=== PATIENT | female | born 2000 | race African-American/Black ===

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

== ENCOUNTER 2023-07-17 13:07 | Observation (INO) | payer OTHER ==
[~2023-07-17] VITALS: Ht 170.2 cm; Wt 104.0 kg
[2023-07-17 13:48] VITALS: BP 129/74; PULSE 100; RESP 20; O2SAT 97
== END 2023-07-17 15:42 | disposition home or self-care (01) ==
LOC: ER 13:07 → UNDOADMOB 14:05 → LDRP 14:05 → UNDODISOB 15:42
PROVIDERS: ADMIT Obstetrics & Gynecology; ATTEND Obstetrics & Gynecology
DX: O36.8130 Decreased fetal movements, third trimester, not applicable or unspecified (principal); O62.9 Abnormality of forces of labor, unspecified; O99.333 Smoking (tobacco) complicating pregnancy, third trimester; F17.200 Nicotine dependence, unspecified, uncomplicated; Z3A.37 37 weeks gestation of pregnancy
CPT/HCPCS: 59025; 76818; 81002; 94760; 99284; G0378

== ENCOUNTER 2023-07-30 15:44 | Inpatient (IN) | payer OTHER ==
[~2023-07-30] VITALS: Ht 170.2 cm; Wt 72.6 kg
[2023-07-30] MEDS ORDERED: ceFAZolin 2 GM/D5W100ml 100 ML IV ONE ×2 (16:15→17:11)
[2023-07-30] MEDS ORDERED: LACTATED RINGER'S 1,000 ML IV SCH (16:15)
[2023-07-30] MEDS ORDERED: LACTATED RINGER'S 1,000 ML IV ONE (16:15)
[2023-07-30] MEDS ORDERED: ONDANSETRON HCL 4 MG/2 ML VIAL ONE (16:47)
[2023-07-30] MEDS ORDERED: HYDROmorphone HCL 2 MG/ML VL/or syr ONE (16:47)
[2023-07-30] MEDS ORDERED: PROPOFOL 10 MG/ML 20 ML IV ONE (16:47)
[2023-07-30] MEDS ORDERED: fentaNYL CITRATE 100 MCG/2 ML VL ONE (16:47)
[2023-07-30] MEDS ORDERED: LIDOCAINE 2% (LOCAL ANESTH.) PF 5ml SDV ONE (16:47)
[2023-07-30] MEDS ORDERED: ePHEDrine SULFATE 50 MG/ML AMP ONE (16:47)
[2023-07-30] MEDS ORDERED: GLYCOPYRROLATE 0.2 MG/ML 1ML VIAL ONE (16:47)
[2023-07-30] MEDS ORDERED: MIDAZOLAM HCL 2MG/2ML 2ml VIAL (1mg/ml) ONE (16:47)
[2023-07-30] MEDS ORDERED: DexAMETHasone SOD PHOS 10MG/1ML VIAL INJ ONE (16:47)
[2023-07-30] MEDS ORDERED: SUCCINYLCHOLINE CHLORIDE 20 MG/ML 10ML VIAL IV ONE (16:51)
[2023-07-30] MEDS ORDERED: ROCURONIUM 10MG/ML 10ML VIAL IV ONE (16:52)
[2023-07-30] MEDS ORDERED: DOCU-94 PO (17:05)
[2023-07-30] MEDS ORDERED: CEPH500T PO (17:05)
[2023-07-30] MEDS ORDERED: HYDR-4902 PO (17:05)
[2023-07-30 17:11] LABS: Basophils # (auto) 0 10 ^3/uL (0-0.2); Basophils % (auto) 0.2 % (0.0-2.0); Eosinophils # (auto) 0.1 10 ^3/uL (0-0.8); Eosinophils % (auto) 0.5 % (0.0-7.0); Hematocrit 26.2 % (36.0-46.0); Hemoglobin 7.9 g/dL (12.2-16.2); Lymphocytes # (auto) 2.6 10 ^3/uL (0.4-5.4); Lymphocytes % (auto) 23.1 % (10.0-50.0); Mean Corpuscular Hemoglobin 20.5 pg (28.0-32.0); Mean Corpuscular Hgb Conc. 30.1 g/dL (32.0-36.0); Mean Corpuscular Volume 68.1 fL (80.0-100.0); Monocytes # (auto) 0.5 10 ^3/uL (0-1.3); Monocytes % (auto) 4.3 % (0.0-12.0); Neutrophils # (auto) 8.2 10 ^3/uL (1.6-8.6); Neutrophils % (auto) 71.9 % (37.0-80.0); Nucleated Red Blood Cells % 0.1 %; Red Blood Cells 3.85 10^6/uL (4.0-5.20); Red Cell Distribution Width 18.6 % (11.8-14.3); White Blood Cell 11.4 10^3/uL (4.4-10.8)
[2023-07-30] MEDS ORDERED: ONDANSETRON HCL 4 MG/2 ML VIAL IV PRN (17:15)
[2023-07-30] MEDS ORDERED: LACT. RINGERS/OXYTOCIN 20UNITS 1,000 ML IV ONE (17:15)
[2023-07-30] MEDS ORDERED: GUM (CHEWING) 1 GUM CHEW CHEW ONE (17:15)
[2023-07-30 17:16] LABS: Alanine Aminotransferase 12 U/L (7-40); Albumin 4.1 g/dL (3.2-4.8); Alkaline Phosphatase 176 U/L (46-116); Anion Gap 10 (5-15); Aspartate Aminotransferase 18 U/L (13-40); Bilirubin, Total 0.6 mg/dL (0.2-1.0); Blood Urea Nitrogen 7 mg/dL (9-23); Calcium 8.9 mg/dL (8.5-10.1); Carbon Dioxide 23 mmol/L (20-30); Chloride 101 mmol/L (98-107); Glucose 73 mg/dL (74-106); Potassium 3.9 mmol/L (3.5-5.1); Sodium 134 mmol/L (136-145)
[2023-07-30 17:17] LABS: INR 0.99 (0.9-1.15); Prothrombin Time 10.4 sec (9.3-11.8); Total Protein 7.2 g/dL (5.7-8.2)
[2023-07-30 18:03] VITALS: RESP 16; O2SAT 96
[2023-07-30 18:32] LABS: Amphetamine Screen, Urine Neg (NEGATIVE)
[2023-07-30 18:33] LABS: Barbiturate Scree,Urine Neg (NEGATIVE); Benzodiazephine Screen, Urine Neg (NEGATIVE); Cannabinoid Screen, Urine Neg (NEGATIVE); Cocaine Screen, Urine Neg (NEGATIVE); Opiate Scree,Urine Neg (NEGATIVE); Phencyclidine Screen, Urine Neg (NEGATIVE)
[2023-07-30 19:00] VITALS: BP 105/73; PULSE 94; RESP 18; TEMP 97.6; O2SAT 97
[2023-07-30 19:22] LABS: Urine Bacteria FEW /hpf (None Seen); Urine Blood TRACE /uL (Negative); Urine Clarity Clear (Clear); Urine Color Yellow (Yellow); Urine Mucus FEW (None Seen); Urine Protein, UAD 1+ (Negative); Urine Specific Gravity 1.032 (1.001-1.035); Urine WBC 1 /hpf (0 - 5)
[2023-07-30 19:30] VITALS: BP 92/64; PULSE 78; RESP 18; O2SAT 96
[2023-07-30 19:55] LABS: Platelet Estimate Adequate
[2023-07-30 19:56] LABS: Hypochromia Moderate
[2023-07-30 20:00] VITALS: BP 112/68; PULSE 88; RESP 20; O2SAT 95
[2023-07-30] MEDS ORDERED: ACETAMINOPHEN IV 1000 MG/100ML (10MG/ML) IV PRN (20:15)
[2023-07-30] MEDS ORDERED: HYDROmorphone HCL 2 MG/ML VL/or syr IV PRN (20:15)
[2023-07-30] MEDS ORDERED: ACETAMINOPHEN IV 100 ML IV ONE (21:26)
[2023-07-30] MEDS ORDERED: IBUP-1456 PO (22:08)
[2023-07-30 23:00] VITALS: BP 111/45; PULSE 86; TEMP 98.3; O2SAT 100
[2023-07-30 23:08] LABS: Basophils # (auto) 0 10 ^3/uL (0-0.2); Basophils % (auto) 0.1 % (0.0-2.0); Eosinophils # (auto) 0 10 ^3/uL (0-0.8); Lymphocytes % (auto) 6.6 % (10.0-50.0); Monocytes # (auto) 0.2 10 ^3/uL (0-1.3)
[2023-07-30 23:10] LABS: Hematocrit 23.6 % (36.0-46.0); Mean Corpuscular Hemoglobin 20.2 pg (28.0-32.0); Mean Corpuscular Hgb Conc. 29.7 g/dL (32.0-36.0); Mean Corpuscular Volume 67.9 fL (80.0-100.0); Monocytes % (auto) 1.5 % (0.0-12.0); Neutrophils # (auto) 13.3 10 ^3/uL (1.6-8.6); Neutrophils % (auto) 91.8 % (37.0-80.0); Red Blood Cells 3.47 10^6/uL (4.0-5.20); Red Cell Distribution Width 18.3 % (11.8-14.3); White Blood Cell 14.5 10^3/uL (4.4-10.8)
[2023-07-31] VITALS (10 sets, daily range): BP systolic 101–118; BP diastolic 53–66; PULSE 72–90; RESP 16–20; TEMP 97.6–98.9; O2SAT 95–97
[2023-07-31] MEDS ORDERED: ceFAZolin 1GM/50ML 50 ML IV ONE ×8 (01:08→19:27)
[2023-07-31] MEDS: ceFAZolin 1GM/50ML 50 ML IV SCH ×3 (01:11→19:30)
[2023-07-31 05:04] LABS: Basophils # (auto) 0 10 ^3/uL (0-0.2); Eosinophils # (auto) 0 10 ^3/uL (0-0.8); Hematocrit 20.8 % (36.0-46.0); Lymphocytes # (auto) 1.1 10 ^3/uL (0.4-5.4); Mean Corpuscular Hemoglobin 20.7 pg (28.0-32.0); Monocytes # (auto) 0.3 10 ^3/uL (0-1.3); Monocytes % (auto) 2.1 % (0.0-12.0); Red Blood Cells 3.09 10^6/uL (4.0-5.20)
[2023-07-31 05:06] LABS: Basophils % (auto) 0.1 % (0.0-2.0); Lymphocytes % (auto) 8.7 % (10.0-50.0); Mean Corpuscular Hgb Conc. 30.8 g/dL (32.0-36.0); Mean Corpuscular Volume 67.3 fL (80.0-100.0); Neutrophils # (auto) 11.1 10 ^3/uL (1.6-8.6); Neutrophils % (auto) 89.1 % (37.0-80.0); Nucleated Red Blood Cells % 0.1 %; Red Cell Distribution Width 18.3 % (11.8-14.3); White Blood Cell 12.4 10^3/uL (4.4-10.8)
[2023-07-31 05:10] LABS: Hemoglobin 6.4 g/dL (12.2-16.2)
[2023-07-31] MEDS ORDERED: ACETAMINOPHEN 325 MG TAB PO ONE (10:21)
[2023-07-31] MEDS ORDERED: ACETAMINOPHEN 325 MG TAB PO PRN (10:30)
[2023-07-31] MEDS ORDERED: HYDROmorphone HCL 2 MG/ML VL/or syr ONE (11:14)
[2023-07-31 15:30] LABS: Basophils # (auto) 0 10 ^3/uL (0-0.2); Eosinophils # (auto) 0 10 ^3/uL (0-0.8); Eosinophils % (auto) 0.1 % (0.0-7.0); Hematocrit 26.3 % (36.0-46.0); Hemoglobin 8.2 g/dL (12.2-16.2); Lymphocytes # (auto) 2.6 10 ^3/uL (0.4-5.4); Lymphocytes % (auto) 19.2 % (10.0-50.0); Mean Corpuscular Hemoglobin 22.7 pg (28.0-32.0); Mean Corpuscular Hgb Conc. 31.1 g/dL (32.0-36.0); Mean Corpuscular Volume 72.9 fL (80.0-100.0); Monocytes # (auto) 1.1 10 ^3/uL (0-1.3); Monocytes % (auto) 7.9 % (0.0-12.0); Neutrophils # (auto) 9.7 10 ^3/uL (1.6-8.6); Neutrophils % (auto) 72.8 % (37.0-80.0); Nucleated Red Blood Cells % 0.1 %; Red Blood Cells 3.61 10^6/uL (4.0-5.20); White Blood Cell 13.4 10^3/uL (4.4-10.8)
[2023-07-31 15:31] LABS: Red Cell Distribution Width 23.2 % (11.8-14.3)
[2023-07-31] MEDS ORDERED: HYDROcodone-ACET 5/325MG TAB PO PRN (22:00)
[2023-07-31] MEDS ORDERED: IBUPROFEN 800 MG TAB PO ONE (22:43)
[2023-07-31] MEDS: IBUPROFEN 800 MG TAB PO PRN (22:45)
[2023-07-31] MEDS: FERROUS SULFATE 325mg EC TAB PO SCH (22:48)
[2023-07-31] MEDS ORDERED: FERROUS SULFATE 325mg EC TAB PO ONE (22:48)
[2023-07-31] MEDS ORDERED: SIMETHICONE 80 MG CHEWABLE TABLET ONE (22:48)
[2023-07-31] MEDS: SIMETHICONE 80 MG CHEWABLE TABLET PO SCH (22:48)
[2023-08-01] MEDS ORDERED: ACETAMINOPHEN 325 MG TAB PO ONE (01:50)
[2023-08-01 04:55] VITALS: BP 96/52; PULSE 72; TEMP 98.3; O2SAT 96
[2023-08-01] MEDS: SIMETHICONE 80 MG CHEWABLE TABLET PO SCH ×4 (05:57→22:15)
[2023-08-01] MEDS ORDERED: SIMETHICONE 80 MG CHEWABLE TABLET ONE ×3 (05:57→22:10)
[2023-08-01 08:06] LABS: RPR Non Reactive (Non Reactive)
[2023-08-01 10:52] VITALS: BP 114/70; PULSE 83; RESP 16; TEMP 98.1; O2SAT 98
[2023-08-01] MEDS ORDERED: FERROUS SULFATE 325mg EC TAB PO ONE ×2 (10:52→22:17)
[2023-08-01] MEDS: FERROUS SULFATE 325mg EC TAB PO SCH ×2 (10:52→22:17)
[2023-08-01 14:46] VITALS: BP 114/71; PULSE 89; RESP 17; TEMP 98; O2SAT 97
[2023-08-01] MEDS ORDERED: HYDROcodone-ACET 5/325MG TAB ONE (15:00)
[2023-08-01] MEDS: HYDROcodone-ACET 5/325MG TAB PO PRN (15:02)
[2023-08-01 20:00] VITALS: BP 112/68; PULSE 89; RESP 18; TEMP 98.1; O2SAT 96
[2023-08-02] MEDS: HYDROcodone-ACET 5/325MG TAB PO PRN (01:42)
[2023-08-02 03:00] VITALS: BP 116/70; PULSE 78; RESP 16; TEMP 98; O2SAT 97
[2023-08-02] MEDS: SIMETHICONE 80 MG CHEWABLE TABLET PO SCH ×2 (05:50→12:11)
[2023-08-02 07:25] VITALS: BP 124/66; PULSE 99; RESP 17; TEMP 98.7; O2SAT 98
[2023-08-02] MEDS ORDERED: ONDANSETRON ODT 4 MG TAB PO ONE (09:00)
[2023-08-02] MEDS: FERROUS SULFATE 325mg EC TAB PO SCH (10:28)
[2023-08-02 10:45] VITALS: BP 129/71; PULSE 93; RESP 17; TEMP 98.3; O2SAT 98
[2023-08-02] MEDS: IBUPROFEN 800 MG TAB PO PRN (11:04)
[2023-08-03 19:06] LABS: Treponema pallidum Ab (FTA-Ab) Non Reactive (Non Reactive)
== END 2023-08-02 14:18 | disposition home or self-care (01) | DRG 540 ==
LOC: LDRP 15:44 → UNDOADMOB 15:44 → OBSVTOIN 16:00 → INTOOBSV 16:00 → LDRP 16:05 → OBSVTOIN 16:09 → LDRP 16:09
PROVIDERS: ADMIT Obstetrics & Gynecology; ATTEND Obstetrics & Gynecology
PROC: 10D00Z1 Extraction of Products of Conception, Low, Open Approach (ICD-10-PCS; principal; 2023-07-30 17:15)
PROC: 30233N1 Transfusion of Nonautologous Red Blood Cells into Peripheral Vein, Percutaneous Approach (ICD-10-PCS; 2023-07-31)
DX: O99.214 Obesity complicating childbirth (principal); R71.0 Precipitous drop in hematocrit; O34.211 Maternal care for low transverse scar from previous cesarean delivery; E66.01 Morbid (severe) obesity due to excess calories; O99.02 Anemia complicating childbirth; Z37.0 Single live birth; O99.345 Other mental disorders complicating the puerperium; Z3A.39 39 weeks gestation of pregnancy; Z56.0 Unemployment, unspecified; F53.0 Postpartum depression
CPT/HCPCS: 36415; 36430; 59025; 76815; 80053; 80307; 81001; 81002; 85025; 85610; 85730; 86592; 86703; 86762; 86850; 86900; 86901; 86920; 87340; 94760; 94762; 96360; 96361; 96366; G0378; J0131; J0330; J1100; J2001; J2250; J2405; J2704